=== PATIENT | female | born 1955 | race Caucasian/White ===

== ENCOUNTER → 2016-10-09 | Outpatient (CLI) | payer BC ==
[~2016-10-09] MED LIST: ASPI81TA28 PO; OMEG10007 PO
[2016-10-09 16:05] LABS: THYROID STIMULATING HORMONE 1.97 uIu/ml (0.300-4.500)
== END | disposition home or self-care (01) ==
LOC: C.LAB1850 14:12
PROVIDERS: ATTEND Obstetrics & Gynecology
DX: K63.5 Polyp of colon (principal)